=== PATIENT | female | born 1965 | race Caucasian/White ===

== ENCOUNTER → 2021-04-20 | Day surgery (SDC) | payer OTHER ==
[~2021-04-20] VITALS: Ht 165.1 cm; Wt 82.5 kg
[~2021-04-20] MED LIST: ASPIRIN325 M1 PO; ATORVASTATIN CA40 MG PO; DOXYCYCLINE HYC50 MG PO; HCTZ12.5 MG PO; JANUMET XR 1001 EACH PO; LANTUS SOL100 UNIT/1 SC; LASIX40 MG PO; LOPRESSOR50 MG PO; MELOXICAM15 MG PO; PANTOPRAZOLE SO40 MG PO; POTASSIUM CHLO20 ME2 PO; VALSARTAN160 MG PO
== END | disposition home or self-care (01) ==
LOC: FAS 08:07
DX: K57.30 Diverticulosis of large intestine without perforation or abscess without bleeding (principal); K50.10 Crohn's disease of large intestine without complications; K52.832 Lymphocytic colitis; R10.13 Epigastric pain; R68.81 Early satiety; E11.9 Type 2 diabetes mellitus without complications; I10 Essential (primary) hypertension; I25.10 Atherosclerotic heart disease of native coronary artery without angina pectoris; F41.9 Anxiety disorder, unspecified; M19.90 Unspecified osteoarthritis, unspecified site; F32.9 Major depressive disorder, single episode, unspecified; K21.9 Gastro-esophageal reflux disease without esophagitis; E78.00 Pure hypercholesterolemia, unspecified; D50.9 Iron deficiency anemia, unspecified; M81.0 Age-related osteoporosis without current pathological fracture; E66.9 Obesity, unspecified; Z68.25 Body mass index [BMI] 25.0-25.9, adult; J44.9 Chronic obstructive pulmonary disease, unspecified; F17.210 Nicotine dependence, cigarettes, uncomplicated; Z79.82 Long term (current) use of aspirin; Z95.5 Presence of coronary angioplasty implant and graft; Z80.0 Family history of malignant neoplasm of digestive organs
CPT/HCPCS: J2250; J2704; J7120